=== PATIENT | female | born 1970 | race Caucasian/White ===

== ENCOUNTER 2022-07-22 14:39 | Emergency (ER) | payer OTHER ==
[~2022-07-22] VITALS: Ht 154.9 cm; Wt 59.9 kg
--- NOTE | 2022-07-22 14:55 | NUR ---
BIBS W/ C/O RASH ON ABDOMINAL AREA THAT SPREAD TO HER NECK SINCE THIS MORNING. TO ER BED 12
[2022-07-22] MEDS ORDERED: diphenhydrAMINE HCL 50 MG/ML VIAL ONE (16:45)
[2022-07-22] MEDS ORDERED: predniSONE 20 MG TABLET ONE (16:46)
[2022-07-22] MEDS ORDERED: FAMOTIDINE/PF INJ 20 MG/2 ML VIAL IV ONE ×2 (16:46→17:00)
[2022-07-22] MEDS ORDERED: IV NS 0.9% 1,000 ML BAG IV ONE (17:00)
[2022-07-22] MEDS ORDERED: diphenhydrAMINE HCL 50 MG/ML VIAL IV ONE (17:00)
[2022-07-22] MEDS ORDERED: predniSONE 10 MG TABLET PO ONE (17:00)
--- NOTE | 2022-07-22 17:06 | NUR ---
iv line established on rac #[id number], blood drawn and sent to lab
[2022-07-22 17:14] LABS: BASOPHILS % (AUTO) 0.3 % (0.0-2.0); HEMATOCRIT 40 % (33-45); HEMOGLOBIN 13.2 g/dL (11.5-14.8); LYMPHOCYTES # (AUTO) 2.1 K/uL (0.8-4.8); MEAN CORPUSCULAR HGB CONC 33 g/dl (31.0-36.0); MEAN CORPUSCULAR VOLUME 91 fL (82-100); MONOCYTES # (AUTO) 0.6 K/uL (0.1-1.30); MONOCYTES % (AUTO) 6.8 % (2.0-12.0); NEUTROPHILS # (AUTO) 5.7 K/uL (1.8-8.9); NEUTROPHILS % (AUTO) 66.9 % (43.0-81.0); PLATELET COUNT (AUTO) 148 K/uL (150-450); RED BLOOD CELL COUNT(AUTO) 4.39 MIL/uL (4.0-5.2); WHITE BLOOD COUNT (AUTO) 8.6 K/uL (4.3-11.0)
[2022-07-22 17:53] LABS: CALCIUM, SERUM 9.3 mg/dL (8.5-10.1); CREATININE 0.8 mg/dL (0.6-1.3); POTASSIUM 3.7 mmol/L (3.5-5.1)
[2022-07-22] MEDS ORDERED: PRED20TA PO (19:22)
[2022-07-22] MEDS ORDERED: FAMO-131 PO (19:22)
[2022-07-22] MEDS ORDERED: DIPH25CA83 PO (19:22)
--- NOTE | 2022-07-22 19:25 | NUR ---
IV removed. Catheter intact and site benign. Pressure and 4x4 applied to site. No bleeding noted.
[2022-07-22 19:28] VITALS: BP 130/75
--- NOTE | 2022-07-22 19:28 | NUR ---
Patient discharged to home in stable condition. Written and verbal after care instructions given. Patient verbalizes understanding of instruction.
[2022-07-22 23:36] LABS: ALBUMIN 3.9 g/dL (3.4-5.0); BILIRUBIN,DIRECT 0.1 mg/dL (0.0-0.2); BILIRUBIN,TOTAL 0.4 mg/dL (0.2-1.0); TOTAL PROTEIN, SERUM 7.8 g/dL (6.4-8.2)
== END 2022-07-22 19:29 | disposition home or self-care (01) ==
LOC: ER 14:46
DX: L50.9 Urticaria, unspecified (principal); F17.200 Nicotine dependence, unspecified, uncomplicated; Z88.0 Allergy status to penicillin; Z79.899 Other long term (current) drug therapy
CPT/HCPCS: 99284; 96374; 96361; 96375; 85025; 80048; 83690; 80076; 36415; J1200; J3490; J7512; J7030